=== PATIENT | female | born 1990 | race Caucasian/White ===

== ENCOUNTER 2018-03-12 16:25 | Emergency (ER) | payer OTHER ==
[~2018-03-12] VITALS: Ht 162.6 cm; Wt 68.0 kg
[2018-03-12 17:10] VITALS: BP 100/58
--- NOTE | 2018-03-12 17:19 | NUR ---
PT TAKEN TO XRAY VIA WHEEL CHAIR
--- NOTE | 2018-03-12 17:21 | NUR ---
PT TO BED 8 AT THIS TIME
--- NOTE | 2018-03-12 17:30 | NUR ---
27YO F BIB FAMILY WITH C/O LOWER BACK PAIN S/P FALL ON A SIDE WALK BRICKS; DENIES LOC OR OTHER INJURY; PT UNABLE TO AMBULATE. PT WITH FACIAL GRIMICING.PT DENIES ANY CP, SOB, N/V/D , NO RADIATING PAIN. LS CLEAR THROUGHOUT. RR EVEN AND UNLABORED. ABD SOFT NON TENDER, BS ACTIVE X4. ER MD MADE AWARE. WILL CONTINUE TO MONITOR HX; DENIES RX; DENIES
[2018-03-12] MEDS ORDERED: KETOROLAC 60 MG/2 ML VIAL IM ONE (17:55)
--- NOTE | 2018-03-12 18:40 | NUR ---
PT IS IN W/C IN STABLE CONDITION WITH AT BEDSIDE , PT STAT 12/15 PAIN, ER MADE AWARE
--- NOTE | 2018-03-12 19:57 | NUR ---
PT RETURN FROM CT
--- NOTE | 2018-03-12 20:37 | NUR ---
Patient discharged with v/s stable. Written and verbal after care instructions given and explained. Patient alert, oriented and verbalized understanding of instructions. Wheel Chair Assisted TO LOBBY TO WAIT FOR RIDE. All questions addressed prior to discharge. ID band removed. Patient advised to follow up with PMD. Rx of NORCO, IBUPROFEN, ROBAXIN given. Patient educated on indication of medication including possible reaction and side effects. Opportunity to ask questions provided and answered.
[2018-03-12 20:38] VITALS: BP 124/61
== END 2018-03-12 20:37 | disposition home or self-care (01) ==
LOC: MED 16:25
DX: M54.5 Low back pain (principal); J45.909 Unspecified asthma, uncomplicated; Z88.1 Allergy status to other antibiotic agents; Z88.2 Allergy status to sulfonamides
CPT/HCPCS: 72131; 72192; 81025; 96372; 99284; J1885

== ENCOUNTER 2018-10-18 03:35 | Emergency (ER) | payer OTHER ==
[~2018-10-18] VITALS: Ht 162.6 cm; Wt 75.5 kg
[2018-10-18 03:35] VITALS: BP 116/66
--- NOTE | 2018-10-18 03:35 | NUR ---
TO BED # 04 AMBULATORY
--- NOTE | 2018-10-18 03:45 | NUR ---
28 YO F BIB SELF AND PRESENTS TO ED C/O 02/14 LOWER BACK PAIN X 3 DAYS NON RADIATING. PT STATES SHE HAS BEEN MOVING ALL WEEK AND HAS BEEN LIFTING HEAVY BOXES. POSSIBLE BACK INJURY. PMH-- DENIES
[2018-10-18] MEDS ORDERED: KETOROLAC 60 MG/2 ML VIAL IM ONE (03:55)
[2018-10-18 05:22] VITALS: BP 116/66
--- NOTE | 2018-10-18 05:22 | NUR ---
DISCHARGE PAPERS GIVEN TO PT. 0/10 PAIN. RX OF ROBAXIN AND MOTRIN GIVEN. SIDE EFFECTS EXLPLAINED. INSTRUCTED TO F/U WITH PCP AND WHEN TO RETURN TO ER. PT VERBALLIZED UNDERSTANDING OF DC INSTRUCTIONS. ALL QUESTIONS ANSWERED.
== END 2018-10-18 05:22 | disposition home or self-care (01) ==
LOC: MED 03:35
DX: S39.012A Strain of muscle, fascia and tendon of lower back, initial encounter (principal); J45.909 Unspecified asthma, uncomplicated; Z88.1 Allergy status to other antibiotic agents; Z88.2 Allergy status to sulfonamides; X58.XXXA Exposure to other specified factors, initial encounter; Y93.89 Activity, other specified; Y92.89 Other specified places as the place of occurrence of the external cause; Y99.8 Other external cause status
CPT/HCPCS: 72080; 81002; 81025; 96372; 99283; J1885